=== PATIENT | female | born 1950 | race Caucasian/White ===

== ENCOUNTER → 2023-11-08 12:07 | Outpatient (REF) | payer OTHER, SELFPAY | LOC: RCS 12:07 | PROVIDERS: ATTENDING PHYSICIAN Internal Medicine Cardiovascular Disease; FAMILY PHYSICIAN Family Medicine | DX: I48.0 Paroxysmal atrial fibrillation (principal) | CPT/HCPCS: 93005 ==

== ENCOUNTER 2024-07-09 10:45 | Day surgery (SDC) | payer OTHER, SELFPAY | END 2024-07-09 11:58 | disposition home or self-care (01) | LOC: CATH 10:45 | PROVIDERS: ATTENDING PHYSICIAN Internal Medicine; FAMILY PHYSICIAN Family Medicine; REFERRING PHYSICIAN Internal Medicine Cardiovascular Disease | DX: I48.0 Paroxysmal atrial fibrillation (principal); I48.4 Atypical atrial flutter; E78.00 Pure hypercholesterolemia, unspecified; E03.9 Hypothyroidism, unspecified; E11.9 Type 2 diabetes mellitus without complications; Z79.01 Long term (current) use of anticoagulants; Z79.84 Long term (current) use of oral hypoglycemic drugs | CPT/HCPCS: 92960; 93005 ==

== ENCOUNTER → 2024-10-10 10:02 | Outpatient (REF) | payer OTHER, SELFPAY | LOC: WDC 10:02 | PROVIDERS: ATTENDING PHYSICIAN Family Medicine | DX: N63.20 Unspecified lump in the left breast, unspecified quadrant (principal); N63.23 Unspecified lump in the left breast, lower outer quadrant | CPT/HCPCS: 76642; 77062; 77066 ==

== ENCOUNTER → 2024-12-04 10:35 | Outpatient (REF) | payer OTHER, SELFPAY | LOC: RAD 10:35 | PROVIDERS: ATTENDING PHYSICIAN Family Medicine | DX: R63.4 Abnormal weight loss (principal) | CPT/HCPCS: 71046 ==

== ENCOUNTER 2024-12-15 23:27 | Observation (INO) | payer OTHER, SELFPAY ==
[2024-12-15 19:33] VITALS: BP 122/66; BMI 24.0
[2024-12-15 19:34] VITALS: BP 122/66
[2024-12-15 19:47] LABS: % Basophils 0.3 % (0-2); % Immature Granulocytes 0.4 % (0-0.5); % Lymphocytes 5.6 % (20.5-51.1); % Monocytes 5.2 % (1.7-9.3); % Neutrophils 88.5 % (42.2-75.2); Absolute Lymphocytes 0.6 10^3/uL (1.2-3.4); Absolute Monocytes 0.6 10^3/uL (0.1-0.6); Absolute Neutrophils 9.5 10^3/uL (1.4-6.5); Hematocrit 39.9 % (37.0-47.0); Hemoglobin 12.8 g/dL (12.0-16.0); Mean Corp Hgb Conc. 32.1 g/dL (33.0-37.0); Mean Corpuscular Hgb 28.6 pg (27.0-31.0); Mean Corpuscular Volume 89.1 fL (81.0-99.0); Mean Platelet Volume 11.4 fL (7.4-10.4); Nucleated Red Blood Cells % 0 %; Platelet Count 161 10^3/uL (130-400); Red Blood Cell Count 4.48 10^6/uL (4.20-5.40); Red Cell Dist. Width 13.9 % (11.5-14.5); White Blood Cell Count 10.7 10^3/uL (4.8-10.8)
[2024-12-15] MEDS: NSS 1000 IV (19:55)
[2024-12-15 20:00] VITALS: BP 135/80
[2024-12-15 20:10] LABS: ALT (SGPT) 21 U/L (0-35); AST (SGOT) 28 U/L (14-36); Albumin 4.1 g/dl (3.5-5.0); Alkaline Phosphatase 58 U/L (38-126); Blood Urea Nitrogen 13 mg/dl (7-17); Calcium 9.5 mg/dl (8.4-10.2); Carbon Dioxide 26 mmol/L (22-30); Chloride 97 mmol/L (98-107); Estimated Creatinine Clearance 64 ml/min; Glucose 232 mg/dl (70-99); Sodium 132 mmol/L (135-145); Total Bilirubin 1.1 mg/dl (0.2-1.3); Total Protein 6.5 g/dl (6.3-8.2); eGFR > 60.00
--- NOTE | 2024-12-15 20:35 | ED.GENMED ---
History of Present Illness
General
Chief Complaint: Weakness
Source: patient
Time Seen by Provider: 12/15/24 19:35
History of Present Illness
History of Present Illness:
This 74-year-old female with past medical history of atrial fibrillation, hyperlipidemia, ghv-snwgzvh-ydgxhetrf diabetes, anxiety presenting to the emergency department via EMS from home due to generalized weakness and inability to ambulate.
Patient tested positive for COVID on Monday, symptoms started Monday evening. Today patient was unable to get up out of bed, slid to the ground and family had to help her of the ground. Patient is on Pradaxa due to her history of A-fib, does not
currently have any headaches. Family did note over the last day and a half patient has been incontinent of urine but patient is denying any urinary frequency/urgency/dysuria or hematuria. Patient does admit to some nausea but no active vomitus.
Normally patient is able-bodied, ambulates without any assistive devices. She states that the generalized weakness is very atypical for her. She lives at home with her and multiple other family members.
Past History
Past History
ED Past Medical History: Arrthythmia (Atrial fibrillation), NIDDM and Hypothyroidism
ED Past Surgical History: Cholecystectomy, Gynecological and Orthopedic
Social History
Tobacco: Non-smoker
Alcohol: None
Drug: None
Personal:
Living: with family
Employment: Employed
Family History
Family History: Other (Noncontributory)
Review of Systems
Review of Systems
All Other Systems: ROS reviewed and negative except as documented in HPI and ROS
Phy Exam
Physical Exam
Physical Exam:
GENERAL: Alert , in no apparent distress
HEAD: NCAT
EYE: clear conjunctiva
NECK: Supple
ENT: o/p clr, mmm.
CARDIAC: Regular rate and rhythm .
LUNGS: Clear breath sounds bilaterally, no acute respiratory distress, no wheezes/rales/rhonchi
ABDOMEN: Soft, without focal tenderness, no r/g, no cvat
NEUROLOGICAL: Alert and oriented, REZA x 4
SKIN: Warm and dry, skin intact.
MUSCULOSKELETAL: No edema, well perfused.
PSYCH: Normal and appropriate interaction.
Scores
Heart Failure Risk
Heart Failure Risk Score: Not Applicable
Heart Score for Chest Pain Patients
STEMI patient?: Not applicable
Withdrawal Assessment of Alcohol
Withdrawal Assessment Completed?: Not applicable
Course
Orders/Labs/Results
Orders:
Orders
12/15/24 19:41
Complete Blood Count/With Diff Urgent
Comprehensive Metabolic Panel Urgent
12/15/24 19:44
CT Head W/o Iv Contrast Urgent
Comment:
Reason For Exam: covid, fall from bed, on pradaxa
0.9% Sodium Chloride 1000 ml [Nss] 1,000 ml IV BOLUS
CR Chest - 2 Views Urgent
Comment:
Reason For Exam: covid ,weakness
12/15/24 21:34
Urinalysis Reflex To Culture Urgent
Date Specimen was Collected: 12/15/24
Time Specimen was Collected: 20:57
Urine Microscopic Reflex Cult Urgent
Influenza A+B Rapid Molecular Urgent
LIBERTY Source: Nasal Swab
Specimen Description:
Urine Culture Urgent
LIBERTY Source: U
Specimen Description:
Date Specimen was Collected: 12/15/24
Time Specimen was Collected: 20:57
12/15/24 21:54
CefTRIAXone [Rocephin] 1,000 mg IV NOW STA
12/15/24 23:11
Admit/Transfer Patient As Directed
Co-Sign Provider:
Level of Care: Observation services
Assign to:: Medical/Surgical
Physician / Group: Manan
Diagnosis: COVID / UTI / Weakness
PRN Pain Medication Management As Directed
May give lesser potent ordered pain med per pt: Yes
preference::
Protocol:: Medication orders for pain may be administered in a
manner that supports deferring to patient preference
when the pt is:
- Requesting an ordered lesser potent pain medication.
Least to most potent pain medications are defined
as: acetaminophen < NSAID < tramadol < opioids
(morphine, oxycodone, hydromorphone).
- Requesting a lesser dose of the same medication IF
ORDERED.
- Requesting a less intrusive route of administration
if both routes are prescribed by the provider (PO <
IV).
12/15/24 23:12
Code Status As Directed
Resuscitation Status: Full Code
Abnormal Lab Results
12/15/24 12/15/24
19:41 21:34
MCHC 32.1 L g/dL
(33.0-37.0)
MPV 11.4 H fL
(7.4-10.4)
Absolute Neuts (auto) 9.5 H 10^3/uL
(1.4-6.5)
Absolute Lymphs (auto) 0.6 L 10^3/uL
(1.2-3.4)
Neutrophils % 88.5 H %
(42.2-75.2)
Lymphocytes % 5.6 L %
(20.5-51.1)
Sodium 132 L mmol/L
(135-145)
Chloride 97 L mmol/L
(98-107)
Glucose 232 H mg/dl
(70-99)
Urine Ketones 2+ A
(Negative)
Ur Occult Blood Reflex 1+ A
(Negative)
Leukocyte Esterase Rfl 3+ A
(Negative)
Urine WBC (Reflex) 16-20 A /HPF
(0-5)
Urine Bacteria (Reflex) Few A
(Negative)
Urine Glucose 2+ A
(Negative)
Urine Albumin (Reflex) 2+ A
(Neg - Trace)
12/15/24 19:41
12/15/24 19:41
Vital Signs
Initial and Last Documented VS:
Initial Vital Signs
Temp Pulse Resp BP Pulse Ox
98.6 F 98 24 122/66 98
12/15/24 19:33 12/15/24 19:33 12/15/24 19:33 12/15/24 19:33 12/15/24 19:33
Last Documented Vital Signs
Temp Pulse Resp BP Pulse Ox
98.6 F 86 17 126/52 96
12/15/24 19:33 12/15/24 23:00 12/15/24 23:00 12/15/24 23:00 12/15/24 23:00
MDM/Problems Addressed
Differential Diagnosis Includes:
COVID, electrolyte derangement, intracranial bleeding thought to be less likely given patient placed herself on the ground as opposed to fell, hydrocephalus given her generalized weakness and urinary incontinence
MDM/Problems Addressed:
74-year-old female presenting to the ER for further evaluation due to generalized weakness and inability to ambulate, tested positive for COVID on Monday, symptomatic over the last 2 days. Hemodynamically stable here, moves all extremities. Will
check labs, urine, chest x-ray, CT of the head ordered although my suspicion endocranial bleeding is low but given her reported urinary incontinence and weakness would also want to rule out hydrocephalus. Given patient normally does not have any
ambulatory complications and does not normally need any assistive devices and is anticoagulated, if she is unable to ambulate here will likely need admission for physical therapy and potential need for short-term rehab. Disposition pending.
Chronic conditions affecting care: DM and Arrhythmia
*Radiology
Radiology exam reviewed: preliminary read by ED provider (normal CXR) and radiology read reviewed
*Pulse Oximetry
Patient hypoxic: no
*[employer] Librarian Interpretation
Rate: normal
Rhythm: a-fib
*Critical Care Note
Total Time (30-74mins, 75-104mins- exclusive of procedures): Not Applicable
Patient Management
Discussion with other providers: Hospitalist
Escalation/DeEscalation of care consider admission/obs:
Patient CT of the head is unremarkable for any acute pathologies. Chest x-ray is within normal limits. Lab work does reveal mild hyperglycemia which is likely secondary to known COVID infection. Urinalysis shows 3+ leukocytes and 16-20 WBCs.
Given her reported urinary incontinence will treat as if patient is having a urinary tract infection which could also be contributing to her generalized weakness. 1 g of Rocephin ordered. Hospitalist team to admit.
ED Attending Note
-
Portions of this chart may have been created with voice recognition software.� Occasional wrong word or��sound alike� substitutions may have occurred due to the inherent limitations of voice recognition software.
Discharge Plan
Departure
Patient Disposition: Admit
Date of Disposition: 12/15/24
Time of Disposition: 21:47
Presentation/result/management discussed w/ accepting MD/DO: Hospitalist
Discharge Problem:
COVID-19, Generalized weakness
Prescriptions:
No Action
levothyroxine [Synthroid] 100 MCG tablet
100 mcg PO MOTUWETHFRSA
dabigatran etexilate [Pradaxa] 150 MG capsule
150 mg PO BID Qty: 0 0RF
cetirizine 10 MG tablet
10 mg PO DAILY
metoprolol succinate 50 MG tablet extended release 24 hr
50 mg PO BID
fluticasone propionate 1 SPRAY spray,suspension
2 spray intranasal DAILY PRN (Reason: nasal congestion)
rosuvastatin 5 MG tablet
5 mg PO QPM
vitamin X53-ocjlnbc B1
1 tab PO DAILY
sertraline 25 mg Tablet
25 mg PO DAILY
Saccharomyces boulardii [Probiotic (S.boulardii)] 250 mg Capsule
250 mg PO DAILY
magnesium 250 mg Tablet
250 mg PO DAILY
Referrals:
UNKNOWN - PT NOT,INTERVIEWE [Family Provider] -
Interventions
Interventions:
*Risk Screen - Suicide Last Done: 12/15/24 19:33
*General Assessment Last Done: 12/15/24 19:33
*Neglect/Abuse Screening Last Done: 12/15/24 19:33
*ED- Fall Risk Assessment Last Done: 12/15/24 19:33
*ED COVID-19 Vaccine History Last Done: 12/15/24 19:33
ED- Cardiac Assessment Last Done: 12/15/24 19:38
ED- Neurological Assessment Last Done: 12/15/24 19:38
ED- Pulmonary Assessment Last Done: 12/15/24 19:38
Discharge Date and Time
Print Language: ARGENTINE
[2024-12-15 21:00] VITALS: BP 149/69
[2024-12-15 21:43] LABS: Urine Albumin 2+ (Neg - Trace); Urine Bilirubin Negative (Negative); Urine Character Clear (Clear); Urine Color Yellow; Urine Glucose 2+ (Negative); Urine Ketone 2+ (Negative); Urine Leukocyte 3+ (Negative); Urine Nitrite Negative (Negative); Urine Occult Blood 1+ (Negative); Urine Urobilinogen Negative (Neg - 1+)
[2024-12-15 21:49] LABS: Urine Bacteria Few (Negative)
[2024-12-15 21:50] LABS: Urine Red Blood Cell 0-2 /HPF (0-2); Urine White Cell 16-20 /HPF (0-5)
[2024-12-15 22:00] VITALS: BP 125/59
[2024-12-15] MEDS: ROCEPHIN 1000 MG IV (22:15)
[2024-12-15 23:00] VITALS: BP 126/52
--- NOTE | 2024-12-15 23:14 | HPS.HSE ---
Family Physician
-
Family Physician: INTERVIEWE UNKNOWN - PT NOT
Chief Complaint
-
Weakness
History of Present Illness
Patient is a 74y F with PMH significant for A-Fib, DM-II and hypothyroidism who presents to ED complaining of generalized weakness. Patient states that she initially developed symptoms of cough, weakness, myalgias and fatigue on Monday. She
took a home COVID test on Monday which was positive. She has been resting at home and feels that many of her symptoms (cough, myalgias, etc) are improving. However, today she felt extremely weak and 'slid' to the floor. She denies any injury,
trauma, etc. No head injury. No LOC. She was unable to get back up unassisted and was brought to the ED for further evaluation.
Patient also complains of dark colored urine, frequency and mild dysuria for the past several days.
Patient has had several SARS-CoV-2 vaccinations. Most recently Fall 2023.
Medical History
Past Medical History
Past Medical History: Reports Other
Additional Past Medical History:
Paroxysmal A-Fib
DM-II
Hypothyroidism
Vitamin D Deficiency
Allergic Rhinitis
Vestibular Migraines
Past Surgical History: Reports Other
Additional Past Surgical History:
Tubal Ligation
ERCP
Breast Biopsy (benign)
Cholecystectomy
Right Oophorectomy
Breast Reduction
Right TKA
Left TKA
PVI Ablation
Social History
Tobacco: Non-smoker
Alcohol: None
Drug: None
Family History
Family History: Not pertinent
Allergies / Home Medications
Allergies reflects when Allergies were last updated in [facility].
Home Medications with original date entered in [facility]
Allergy/Medication List:
Allergies
Allergy/AdvReac Type Severity Reaction Status Date / Time
pollen extracts Allergy sneeze Verified 12/15/24 19:56
sulfamethoxazole Allergy Unknown Verified 12/15/24 19:56
[From Bactrim]
trimethoprim [From Bactrim] Allergy Unknown Verified 12/15/24 19:56
Home Medications
levothyroxine 100 mcg tablet (Synthroid) 100 mcg PO MOTUWETHFRSA 04/05/11
dabigatran etexilate 150 mg capsule (Pradaxa) 150 mg PO BID ##0 03/18/14
cetirizine 10 mg tablet 10 mg PO DAILY 04/07/22
fluticasone propionate 50 mcg/actuation nasal spray,suspension 2 spray intranasal DAILY PRN nasal congestion 04/07/22
metoprolol succinate 50 mg tablet,extended release 24 hr 50 mg PO BID 04/07/22
rosuvastatin 5 mg tablet 5 mg PO QPM 04/07/22
vitamin S34-vselead B1 1 tab PO DAILY 07/21/22
Saccharomyces boulardii 250 mg capsule (Probiotic (S.boulardii)) 250 mg PO DAILY 07/09/24
sertraline 25 mg tablet 25 mg PO DAILY 07/09/24
magnesium 250 mg tablet 250 mg PO DAILY 12/15/24
Review of Systems
-
History Source: Patient
A 12 point ROS was completed and negative except as noted: Yes
Constitutional: Reports Fever, Fatigue and Chills
EENT: Denies Sore Throat
Respiratory: Reports Cough and Trouble Breathing
Cardiac: Denies Chest Pain or Palpitations
Abdomen/GI: Denies Abdominal Pain, Nausea, Vomiting or Diarrhea
: Reports Dysuria, Frequency, Urgency and Dark Urine
Musculoskeletal: Reports Muscle Pain; Denies Joint Pain
Neurological: Reports Weakness; Denies Dizzy or Headache
Physical Exam
Vital Signs
Vital Signs
Temp Pulse Resp BP Pulse Ox
98.6 F 86 17 126/52 96
12/15/24 19:33 12/15/24 23:00 12/15/24 23:00 12/15/24 23:00 12/15/24 23:00
Physical Exam
General: Other (74y F in no acute distress.)
HEENT: Moist mucous membranes and PERRLA
Respiratory: Clear; No Wheezes, Rales or Rhonchi
Cardiac: S1/S2 and Irregular Rhythm; No Murmur
GI: Soft, Non Tender, Non Distended and Normal Bowel Sounds
Musculoskeletal: No Clubbing, No Cyanosis and No Edema
Neuro: AO x 3
Laboratory Results
-
12/15/24 19:41
12/15/24 19:41
Laboratory Results
Total Bilirubin 1.1 mg/dl (0.2-1.3) 12/15/24 19:41
AST 28 U/L (14-36) 12/15/24 19:41
ALT 21 U/L (0-35) 12/15/24 19:41
Alkaline Phosphatase 58 U/L (38-126) 12/15/24 19:41
Impression/Plan
-
A/P: Patient is a 74y F with PMH significant for A-Fib, DM-II and hypothyroidism who presents to ED complaining of generalized weakness and fatigue with recent COVID symptoms.
COVID-19 Infection
Generalized Weakness secondary to the above
- Observe overnight for further evaluation and treatment.
- Symptoms x 3 days in vaccinated host.
- Patient clinically improving in most regards and is not interested in Paxlovid, etc at present.
- Not currently hypoxemic, etc.
- Supportive care. PT / OT evals in AM.
- Follow for any new / worsening symptoms.
UTI
- Urinary symptoms and UA suggestive of infection.
- Continue ceftriaxone pending culture data.
Paroxysmal Atrial Fibrillation
- Stable. Continue metoprolol and Pradaxa.
DM-II
- Stable. No longer on PO medications.
- Follow glucose and cover with SSI as needed
- Update A1C.
Hypothyroidism
- Stable. Continue T4 replacement.
DVT Prophylaxis: On Pradaxa
Code Status: Full
[2024-12-16] VITALS (9 sets, daily range): BP systolic 100–138; BP diastolic 53–75; PULSE 79–95; O2SAT 96–97; BMI 23.5
[2024-12-16] MEDS: NSS 1000 IV ×2 (03:10→15:13)
--- NOTE | 2024-12-16 04:13 | PTCARENOTE ---
Rec'd pt. into room 433 from ED AAOx3; VSS. Pt. ambulatory with assist x 1, gait slightly unsteady, fall precautions initiated. Lungs clear, dry cough present, RA pulse ox 97%. Urinating without difficulty. Plan of care discussed with pt.;
understanding verbalized. Pt. resting quietly.
[2024-12-16] MEDS: TOPROL XL 50 MG PO ×2 (05:24→21:10)
[2024-12-16] MEDS: PRADAXA 150 MG PO ×2 (05:24→21:05)
[2024-12-16] MEDS: SYNTHROID 100 MCG PO (05:27)
[2024-12-16 07:54] LABS: Glucose - Point of Care 165 mg/dl (70-99)
[2024-12-16] MEDS: ZOLOFT 25 MG PO (08:43)
[2024-12-16] MEDS: FLORASTOR 250 MG PO (08:43)
[2024-12-16] MEDS: ZYRTEC 10 MG PO (08:43)
[2024-12-16 08:52] LABS: Hematocrit 34.3 % (37.0-47.0); Hemoglobin 11.2 g/dL (12.0-16.0); Mean Corp Hgb Conc. 32.7 g/dL (33.0-37.0); Mean Corpuscular Hgb 29.5 pg (27.0-31.0); Mean Corpuscular Volume 90.3 fL (81.0-99.0); Mean Platelet Volume 12.2 fL (7.4-10.4); Platelet Count 142 10^3/uL (130-400); White Blood Cell Count 9.8 10^3/uL (4.8-10.8)
[2024-12-16] MEDS: NOVOLOG FLEXPEN-LOW RESISTANCE SC (08:52)
[2024-12-16 09:12] LABS: Blood Urea Nitrogen 10 mg/dl (7-17); Calcium 9.4 mg/dl (8.4-10.2); Carbon Dioxide 27 mmol/L (22-30); Chloride 102 mmol/L (98-107); Estimated Creatinine Clearance 75 ml/min; Glucose 164 mg/dl (70-99); Potassium 4.2 mmol/L (3.5-5.1); Sodium 135 mmol/L (135-145); eGFR > 60.00
[2024-12-16 09:48] LABS: Glycohemoglobin (HgbA1c) 6.8 % (4.0-5.6)
[2024-12-16 11:34] LABS: Glucose - Point of Care 219 mg/dl (70-99)
[2024-12-16] MEDS: NOVOLOG FLEXPEN-LOW RESISTANCE 2 UNITS SC (11:46)
--- NOTE | 2024-12-16 13:48 | W.PN.HOSP.TC ---
Today's Communication/Plan
-
continue IV abx pending culture
home VN setup if patient interested
Assessment / Plan
Assessment / Plan
Assessment:
COVID-19 Infection
Generalized Weakness secondary to the above
- Symptoms x 3 days in vaccinated host.
- Patient clinically improving in most regards and is not interested in Paxlovid, etc at present.
- Not currently hypoxemic, etc.
- Supportive care. PT/OT evals (home VN)
- Follow for any new / worsening symptoms.
UTI
- Urinary symptoms and UA suggestive of infection.
- continue Rocephin, day 2 pending culture
Paroxysmal Atrial Fibrillation
- Stable. continue metoprolol and Pradaxa.
DM-II
- Stable. No longer on PO medications.
- Follow glucose and cover with SSI as needed
- A1C 6.8%
Hypothyroidism
- Stable. Continue T4 replacement.
DVT Prophylaxis: Pradaxa
Code Status: Full
Anticipated Discharge: Within 24 hours
Subjective/Interval History
-
Date of Service: December 16, 2024
denies any new complaints at present
breathing improved, no fever/chills
ambulated well
reports urinary frequency
Objective Data
-
Labs:
Laboratory Results
12/16/24
08:10
WBC 9.8
Hgb 11.2 L
Hct 34.3 L
Plt Count 142
Sodium 135
Potassium 4.2
Chloride 102
Carbon Dioxide 27
BUN 10
Creatinine 0.6
Glucose 164 H
Calcium 9.4
Vital Signs:
Vital Signs
Temp Pulse Resp BP Pulse Ox
100 F 82 20 103/62 97
12/16/24 07:00 12/16/24 07:00 12/16/24 07:00 12/16/24 07:00 12/16/24 07:00
I&O
12/15/24 12/16/24 12/17/24
06:59 06:59 06:59
Intake Total 480 / 480
Balance 480 / 480
Physical Exam
-
General: No Apparent Distress
HEENT: Normocephalic and Atraumatic
Respiratory: Negative Wheezes
Cardiac: Regular Rhythm and S1/S2
GI: Soft and Nontender
Musculoskeletal: No Edema
Neuro: AO x 3
Hematologic / Lymphatic: No Lymphadenopathy
Psych: Calm
Data Reviewed
-
Total Time Spent with Patient (in minutes): 41
Labs: Labs Reviewed by me
--- NOTE | 2024-12-16 14:07 | CM ---
Patient was admitted under OBS, OBS status discussed with patient, and TURNER letter provided, not signed. Patient is on isolation. Patient lives with spouse in a 2 story home, patient has 1st floor set up, patient was independent with adl's and
ambulation, no dme, patient drives, patient's physician ordered visiting nurses for patient as recommended by physical therapy, caser offered visiting nurses options to patient and patient declined visiting nurses.
Plan; Home with spouse when stable, no needs.
[2024-12-16] MEDS: ROCEPHIN 1000 MG IV (15:11)
[2024-12-16] MEDS: STERILE WATER FOR INJECTION 10 ML IV (15:11)
[2024-12-16 16:41] LABS: Glucose - Point of Care 162 mg/dl (70-99)
[2024-12-16] MEDS: NOVOLOG FLEXPEN-LOW RESISTANCE 1 UNITS SC (16:42)
[2024-12-16] MEDS: CRESTOR 5 MG PO (17:39)
[2024-12-16 21:45] LABS: Glucose - Point of Care 117 mg/dl (70-99)
[2024-12-17] MEDS: NSS 1000 IV (04:30)
[2024-12-17] MEDS: SYNTHROID 100 MCG PO (04:34)
[2024-12-17 05:13] VITALS: BMI 23.8
[2024-12-17 07:00] VITALS: BP 121/53
[2024-12-17 07:44] LABS: Hematocrit 32.7 % (37.0-47.0); Hemoglobin 10.3 g/dL (12.0-16.0); Mean Corp Hgb Conc. 31.5 g/dL (33.0-37.0); Mean Corpuscular Hgb 29.3 pg (27.0-31.0); Mean Corpuscular Volume 93.2 fL (81.0-99.0); Mean Platelet Volume 11.8 fL (7.4-10.4); Platelet Count 142 10^3/uL (130-400); Red Blood Cell Count 3.51 10^6/uL (4.20-5.40); Red Cell Dist. Width 14.1 % (11.5-14.5); White Blood Cell Count 5.1 10^3/uL (4.8-10.8)
[2024-12-17 08:16] LABS: Glucose - Point of Care 113 mg/dl (70-99)
[2024-12-17] MEDS: NOVOLOG FLEXPEN-LOW RESISTANCE SC ×2 (08:33→11:18)
[2024-12-17 08:36] LABS: Blood Urea Nitrogen 8 mg/dl (7-17); Calcium 9.4 mg/dl (8.4-10.2); Carbon Dioxide 25 mmol/L (22-30); Chloride 108 mmol/L (98-107); Estimated Creatinine Clearance 75 ml/min; Glucose 112 mg/dl (70-99); Potassium 4.5 mmol/L (3.5-5.1); Sodium 139 mmol/L (135-145); eGFR > 60.00
[2024-12-17] MEDS: PRADAXA 150 MG PO (08:52)
[2024-12-17] MEDS: FLORASTOR 250 MG PO (08:53)
[2024-12-17] MEDS: TOPROL XL 50 MG PO (08:53)
[2024-12-17] MEDS: B COMPLEX w/VITAMIN C 1 CAPLET PO (08:53)
[2024-12-17] MEDS: ZOLOFT 25 MG PO (08:53)
[2024-12-17] MEDS: ZYRTEC 10 MG PO (08:53)
--- NOTE | 2024-12-17 10:01 | W.PN.HOSP.TC ---
Today's Communication/Plan
-
dc to home
Assessment / Plan
Assessment / Plan
Assessment:
COVID-19 Infection
Generalized Weakness secondary to the above
- Symptoms x 3 days in vaccinated host.
- Patient clinically improving in most regards and is not interested in Paxlovid, etc at present.
- Not currently hypoxemic, etc.
- Supportive care. PT/OT evals (home VN)
- Follow for any new / worsening symptoms.
UTI
- Urinary symptoms and UA suggestive of infection. culture pending but improving on Rocephin (less frequency) therefore dc on Cefdinir x 5 days to complete 7 day course
Paroxysmal Atrial Fibrillation
- Stable. continue metoprolol and Pradaxa.
DM-II
- Stable. No longer on PO medications.
- Follow glucose and cover with SSI as needed
- A1C 6.8%
Hypothyroidism
- Stable. Continue T4 replacement.
DVT Prophylaxis: Pradaxa
Code Status: Full
More than 30 minutes spent in discharge including
Final examination of the patient
Summarizing hospital stay
Instructions for continuing care to all relevant caregivers
Preparation of discharge records, prescriptions, and referral forms
Total time spent (in minutes):41
Anticipated Discharge: Today
Subjective/Interval History
-
Date of Service: December 17, 2024
resting comfortably, no complaints
urinary frequency has improved
Objective Data
-
Labs:
Laboratory Results
12/17/24
07:06
WBC 5.1
Hgb 10.3 L
Hct 32.7 L
Plt Count 142
Sodium 139
Potassium 4.5
Chloride 108 H
Carbon Dioxide 25
BUN 8
Creatinine 0.6
Glucose 112 H
Calcium 9.4
Vital Signs:
Vital Signs
Temp Pulse Resp BP Pulse Ox
98.3 F 74 18 121/53 98
12/17/24 07:00 12/17/24 07:00 12/17/24 07:00 12/17/24 07:00 12/17/24 07:00
I&O
12/16/24 12/17/24 12/18/24
06:59 06:59 06:59
Intake Total 480 / 480 460 / 460
Balance 480 / 480 460 / 460
Physical Exam
-
General: No Apparent Distress
HEENT: Normocephalic and Atraumatic
Respiratory: Negative Wheezes
Cardiac: Regular Rhythm and S1/S2
GI: Soft and Nontender
Genito-urinary: No Costovertebral Tender
Neuro: AO x 3
Psych: Calm
Data Reviewed
-
Total Time Spent with Patient (in minutes): 41
Labs: Labs Reviewed by me
--- NOTE | 2024-12-17 10:06 | W.DS.TRANS ---
DC Summary - School Psychologist
-
Discharge Instructions:
Discharge Diagnosis/Procedures COVID-19 infection, UTI
Diet Regular
Activity As tolerated
Instructions:
Stand-Alone Forms:
Changes to Home Medications: No
Discharge Medications:
DC Medications w/original date entered in [facility]
levothyroxine 100 mcg tablet (Synthroid) 100 mcg PO MOTUWETHFRSA Thyroid 04/05/11
dabigatran etexilate 150 mg capsule (Pradaxa) 150 mg PO BID ##0 03/18/14
cetirizine 10 mg tablet 10 mg PO DAILY Allergies 04/07/22
fluticasone propionate 50 mcg/actuation nasal spray,suspension 2 spray intranasal DAILY PRN nasal congestion 04/07/22
metoprolol succinate 50 mg tablet,extended release 24 hr 50 mg PO BID Blood Pressure 04/07/22
rosuvastatin 5 mg tablet 5 mg PO QPM High Cholesterol 04/07/22
vitamin P06-dpslyev B1 1 tab PO DAILY Supplement 07/21/22
Saccharomyces boulardii 250 mg capsule (Probiotic (S.boulardii)) 250 mg PO DAILY Supplement 07/09/24
sertraline 25 mg tablet 25 mg PO DAILY Mental Health/Anxiety 07/09/24
magnesium 250 mg tablet 250 mg PO DAILY Supplement 12/15/24
cefdinir 300 mg capsule 300 mg PO BID #9 caps 12/17/24
Home Medication Changes
Pending Results: No
Total time spent discharging patient (in min): 41
[2024-12-17 11:00] VITALS: BP 122/71
--- NOTE | 2024-12-17 11:07 | CM ---
Chart reviewed and patient is for discharge to home today, no needs.
Plan; Home no needs.
[2024-12-17] MEDS: OMNICEF 300 MG PO (11:11)
== END 2024-12-17 12:28 | disposition home or self-care (01) ==
LOC: 4 WEST ACU 23:27
PROVIDERS: Physician Assistant Medical; ADMITTING PHYSICIAN Hospitalist; ATTENDING PHYSICIAN Internal Medicine; EMERGENCY PHYSICIAN Emergency Medicine
DX: U07.1 COVID-19 (principal); R53.1 Weakness; N39.0 Urinary tract infection, site not specified; R05.9 Cough, unspecified; M79.10 Myalgia, unspecified site; R53.83 Other fatigue; W06.XXXA Fall from bed, initial encounter; Y93.89 Activity, other specified; Y92.003 Bedroom of unspecified non-institutional (private) residence as the place of occurrence of the external cause; R32 Unspecified urinary incontinence; E78.5 Hyperlipidemia, unspecified; I48.0 Paroxysmal atrial fibrillation; E03.9 Hypothyroidism, unspecified; F41.9 Anxiety disorder, unspecified; I51.7 Cardiomegaly; Q25.46 Tortuous aortic arch; M19.012 Primary osteoarthritis, left shoulder; M19.011 Primary osteoarthritis, right shoulder; E11.9 Type 2 diabetes mellitus without complications; I67.81 Acute cerebrovascular insufficiency; Z79.890 Hormone replacement therapy; Z79.51 Long term (current) use of inhaled steroids; Z79.02 Long term (current) use of antithrombotics/antiplatelets; Z90.49 Acquired absence of other specified parts of digestive tract; E55.9 Vitamin D deficiency, unspecified; Z96.653 Presence of artificial knee joint, bilateral; Z88.2 Allergy status to sulfonamides; Z88.1 Allergy status to other antibiotic agents
CPT/HCPCS: 70450; 71046; 80048; 80053; 81003; 81015; 82962; 83036; 85025; 85027; 87077; 87086; 87502; 96361; 96374; 97162; 97166; 99285; G0378

== ENCOUNTER 2024-12-23 08:20 | Inpatient (IN) | payer OTHER, SELFPAY ==
[2024-12-21 20:44] VITALS: BP 130/79
[2024-12-21 21:17] LABS: % Basophils 0.3 % (0-2); % Eosinophils 1.1 % (0-6); % Immature Granulocytes 0.9 % (0-0.5); % Lymphocytes 2.6 % (20.5-51.1); % Monocytes 3.4 % (1.7-9.3); % Neutrophils 91.7 % (42.2-75.2); Absolute Eosinophils 0.1 10^3/uL (0-0.7); Absolute Immature Granulocytes 0.1 10^3/uL (0-0.05); Absolute Lymphocytes 0.2 10^3/uL (1.2-3.4); Absolute Monocytes 0.3 10^3/uL (0.1-0.6); Absolute Neutrophils 8.1 10^3/uL (1.4-6.5); Hematocrit 34.3 % (37.0-47.0); Hemoglobin 11.3 g/dL (12.0-16.0); Mean Corp Hgb Conc. 32.9 g/dL (33.0-37.0); Mean Corpuscular Hgb 28.8 pg (27.0-31.0); Mean Corpuscular Volume 87.5 fL (81.0-99.0); Nucleated Red Blood Cells % 0 %; Platelet Count 177 10^3/uL (130-400); Red Blood Cell Count 3.92 10^6/uL (4.20-5.40); Red Cell Dist. Width 13.7 % (11.5-14.5); White Blood Cell Count 8.9 10^3/uL (4.8-10.8)
[2024-12-21 21:36] LABS: ALT (SGPT) 28 U/L (0-35); AST (SGOT) 36 U/L (14-36); Albumin 3.7 g/dl (3.5-5.0); Alkaline Phosphatase 70 U/L (38-126); Blood Urea Nitrogen 8 mg/dl (7-17); Calcium 9.7 mg/dl (8.4-10.2); Carbon Dioxide 25 mmol/L (22-30); Chloride 99 mmol/L (98-107); Glucose 149 mg/dl (70-99); Potassium 3.9 mmol/L (3.5-5.1); Sodium 134 mmol/L (135-145); Total Bilirubin 0.8 mg/dl (0.2-1.3); Total Protein 6.3 g/dl (6.3-8.2); eGFR > 60.00
[2024-12-21 22:17] VITALS: BMI 23.8
[2024-12-21 22:25] VITALS: BP 97/65
[2024-12-21] MEDS: NSS 1000 IV (22:26)
--- NOTE | 2024-12-21 23:26 | ED.GENMED ---
History of Present Illness
General
Chief Complaint: Weakness
Source: patient
Exam Limitations: none
Time Seen by Provider: 12/21/24 22:20
History of Present Illness
History of Present Illness:
74-year-old female presents for reevaluation. She was discharged from here 4 days ago. She had COVID infection as well as urinary tract infection. She was discharged home on Omnicef however urine culture came back a multidrug-resistant
Klebsiella. She was placed on Macrobid. Since starting the Macrobid she has had innumerable episodes of diarrhea. She now notes generalized weakness sensation of dehydration. Accompanied by her daughter. Her daughter states that she collapsed
in the bathroom today but did not sustain any injuries. Patient has no headache chest pain or shortness of breath. She actually fell yesterday and was taken to a different hospital and had a CT of her head which was negative.
Past History
Past History
ED Past Medical History: Arrthythmia (Atrial fibrillation), NIDDM and Hypothyroidism
ED Past Surgical History: Cholecystectomy, Gynecological and Orthopedic
Social History
Tobacco: Non-smoker
Alcohol: None
Drug: None
Personal:
Living: with family
Employment: Employed
Family History
Family History: Other (Noncontributory)
Phy Exam
Physical Exam
Physical Exam:
General: Well developed female no acute respiratory distress
HEENT: Normocephalic mucosa dry
Heart: Regular rate and rhythm
Lungs: Clear no wheeze
Abdomen is soft nontender
Extremities: No cyanosis
Course
Orders/Labs/Results
Orders:
Orders
12/21/24 21:05
CMP [Comprehensive Metabolic Panel] Urgent
Complete Blood Count/With Diff Urgent
12/21/24 22:25
0.9% Sodium Chloride 1000 ml [Nss] 1,000 ml IV BOLUS
12/21/24 23:02
Urinalysis Reflex To Culture Urgent
12/21/24 23:23
Piperacillin/Tazo 3.375 Gram [Zosyn] 3.375 gram in 50 ml IV NOW
Abnormal Lab Results
12/21/24
21:05
RBC 3.92 L 10^6/uL
(4.20-5.40)
Hgb 11.3 L g/dL
(12.0-16.0)
Hct 34.3 L %
(37.0-47.0)
MCHC 32.9 L g/dL
(33.0-37.0)
MPV 11.0 H fL
(7.4-10.4)
Abs Immat Gran (auto) 0.1 H 10^3/uL
(0-0.05)
Absolute Neuts (auto) 8.1 H 10^3/uL
(1.4-6.5)
Absolute Lymphs (auto) 0.2 L 10^3/uL
(1.2-3.4)
Immature Gran % 0.9 H %
(0-0.5)
Neutrophils % 91.7 H %
(42.2-75.2)
Lymphocytes % 2.6 L %
(20.5-51.1)
Sodium 134 L mmol/L
(135-145)
Glucose 149 H mg/dl
(70-99)
12/21/24 21:05
12/21/24 21:05
Vital Signs
Initial and Last Documented VS:
Initial Vital Signs
Temp Pulse Resp BP Pulse Ox
98.2 F 107 20 130/79 98
12/21/24 20:44 12/21/24 20:44 12/21/24 20:44 12/21/24 20:44 12/21/24 20:44
Last Documented Vital Signs
Temp Pulse Resp BP Pulse Ox
98.2 F 96 24 97/65 97
12/21/24 20:44 12/21/24 22:45 12/21/24 22:45 12/21/24 22:25 12/21/24 22:30
MDM/Problems Addressed
Differential Diagnosis Includes:
Patient with profound weakness and multiple episodes of diarrhea over the past 2 days. Recent hospital course mentioned above. Systolic blood pressure in the 90s. Looks dry. Check labs. Fluids ordered.
Reviewed urine culture from hospital stay only oral agent effective against the Klebsiella is Macrobid however patient does not seem to be tolerating it. Zosyn ordered. Will admit to hospital
*Critical Care Note
Total Time (30-74mins, 75-104mins- exclusive of procedures): Not Applicable
ED Attending Note
-
Portions of this chart may have been created with voice recognition software.� Occasional wrong word or��sound alike� substitutions may have occurred due to the inherent limitations of voice recognition software.
Discharge Plan
Departure
Patient Disposition: Admit
Date of Disposition: 12/21/24
Time of Disposition: 23:30
Presentation/result/management discussed w/ accepting MD/DO: Hospitalist
Discharge Problem:
Generalized weakness, Acute dehydration
Prescriptions:
No Action
levothyroxine [Synthroid] 100 MCG tablet
100 mcg PO MOTUWETHFRSA
dabigatran etexilate [Pradaxa] 150 MG capsule
150 mg PO BID Qty: 0 0RF
cetirizine 10 MG tablet
10 mg PO DAILY
metoprolol succinate 50 MG tablet extended release 24 hr
50 mg PO BID
fluticasone propionate 1 SPRAY spray,suspension
2 spray intranasal DAILY PRN (Reason: nasal congestion)
rosuvastatin 5 MG tablet
5 mg PO QPM
vitamin [id number] B1
1 tab PO DAILY
sertraline 25 mg Tablet
25 mg PO DAILY
Saccharomyces boulardii [Probiotic (S.boulardii)] 250 mg Capsule
250 mg PO DAILY
magnesium 250 mg Tablet
250 mg PO DAILY
cefdinir 300 mg capsule
300 mg PO BID Qty: 9 0RF
Rx Instructions:
next dose 12/17 PM
Referrals:
Domenica Fang MD [Family Provider] -
Interventions
Interventions:
*Risk Screen - Suicide Last Done: 12/21/24 22:17
*General Assessment Last Done: 12/21/24 20:44
*Neglect/Abuse Screening Last Done: 12/21/24 22:17
*ED- Fall Risk Assessment Last Done: 12/21/24 22:17
*ED COVID-19 Vaccine History Last Done: 12/21/24 22:17
ED- Cardiac Assessment Last Done: 12/21/24 22:17
ED-EENT Assessment Last Done: 12/21/24 22:22
ED-Musculoskeletal Assessment Last Done: 12/21/24 22:22
ED- Neurological Assessment Last Done: 12/21/24 22:17
ED- Pulmonary Assessment Last Done: 12/21/24 22:17
ED-Skin Assessment Last Done: 12/21/24 22:17
Discharge Date and Time
Print Language: MOZAMBICAN
--- NOTE | 2024-12-21 23:36 | HPS.HSE ---
Family Physician
-
Family Physician: Domenica Fang MD
Chief Complaint
-
Weakness
History of Present Illness
Patient is a 74 y/o female past medical history of atrial fibrillation, diabetes mellitus, hypothyroidism and recent hospitalization for COVID infection and UTI who presents with weakness. Patient was admitted from December 15 to . During that
hospitalization she experienced COVID related weakness for which she was evaluated by physical therapy. She received ceftriaxone for a urinary tract infection with improvement in her symptoms and was transitioned Ceftin to complete a 7 day coarse.
After discharge her urine culture revealed an ESBL Klebsiella so she was transitioned to nitrofurantoin. Since changing antibiotics she reports innumerable episodes of diarrhea yesterday, but notes diarrhea seem improved today. She reports several
falls over the past couple of days due to generalized weakness. She denies fevers, sweats or chills. She denies dysuria.
Medical History
Past Medical History
Past Medical History: Reports Other
Additional Past Medical History:
Paroxysmal A-Fib
DM-II
Hypothyroidism
Vitamin D Deficiency
Allergic Rhinitis
Vestibular Migraines
Past Surgical History: Reports Other
Additional Past Surgical History:
Tubal Ligation
ERCP
Breast Biopsy (benign)
Cholecystectomy
Right Oophorectomy
Breast Reduction
Right TKA
Left TKA
PVI Ablation
Social History
Tobacco: Non-smoker
Alcohol: None
Drug: None
Family History
Family History: Not pertinent
Allergies / Home Medications
Allergies reflects when Allergies were last updated in [employer].
Home Medications with original date entered in [employer]
Allergy/Medication List:
Allergies
Allergy/AdvReac Type Severity Reaction Status Date / Time
pollen extracts Allergy sneeze Verified 12/21/24 20:44
sulfamethoxazole Allergy Unknown Verified 12/21/24 20:44
[From Bactrim]
trimethoprim [From Bactrim] Allergy Unknown Verified 12/21/24 20:44
Home Medications
levothyroxine 100 mcg tablet (Synthroid) 100 mcg PO MOTUWETHFRSA Thyroid 04/05/11
dabigatran etexilate 150 mg capsule (Pradaxa) 150 mg PO BID ##0 03/18/14
cetirizine 10 mg tablet 10 mg PO DAILY Allergies 04/07/22
fluticasone propionate 50 mcg/actuation nasal spray,suspension 2 spray intranasal DAILY PRN nasal congestion 04/07/22
metoprolol succinate 50 mg tablet,extended release 24 hr 50 mg PO BID Blood Pressure 04/07/22
rosuvastatin 5 mg tablet 5 mg PO QPM High Cholesterol 04/07/22
vitamin [id number] B1 1 tab PO DAILY Supplement 07/21/22
Saccharomyces boulardii 250 mg capsule (Probiotic (S.boulardii)) 250 mg PO DAILY Supplement 07/09/24
sertraline 25 mg tablet 25 mg PO DAILY Mental Health/Anxiety 07/09/24
magnesium 250 mg tablet 250 mg PO DAILY Supplement 12/15/24
nitrofurantoin monohydrate/macrocrystals 100 mg capsule 100 mg PO BID 12/21/24
Review of Systems
-
A 12 point ROS was completed and negative except as noted: Yes
Constitutional: Denies Fever or Chills
Respiratory: Denies Cough or Trouble Breathing
Cardiac: Denies Chest Pain or Palpitations
Abdomen/GI: Reports Nausea and Diarrhea; Denies Abdominal Pain
Physical Exam
Vital Signs
Vital Signs
Temp Pulse Resp BP Pulse Ox
98.2 F 96 24 97/65 97
12/21/24 20:44 12/21/24 22:45 12/21/24 22:45 12/21/24 22:25 12/21/24 22:30
Physical Exam
General: Comfortable and Conversant
HEENT: Anicteric and Moist mucous membranes
Respiratory: Clear and Non Labored Respirations
Cardiac: S1/S2 and Regular Rhythm
GI: Soft and Non Tender
Rectal: Deferred by Provider
Musculoskeletal: No Clubbing, No Cyanosis and No Edema
Skin: Warm and Dry
Neuro: Awake, Alert, Oriented and Nonfocal/grossly intact
Psych: Calm
Laboratory Results
-
12/21/24 21:05
12/21/24:
Laboratory Results
Total Bilirubin 0.8 mg/dl (0.2-1.3) 12/21/24:
AST 36 U/L (14-36) 12/21/24:
ALT 28 U/L (0-35) 12/21/24:
Alkaline Phosphatase 70 U/L (38-126) 12/21/24:
Data Reviewed
-
Lab Data: Labs Reviewed by me
Impression/Plan
-
Diarrhea, possibly related to nitrofurantoin
-Check stool for C diff following recent IV abx
-Allow low residue diet
-Continue probiotics
ESBL Klebsiella Positive Urine Culture
-During prior admission patient received ceftriaxone with improvement in dysuria
-Patient denies dysuria at present time. She continues to be afebrile with normal WBC Count
-Await repeat urinalysis
-Hold on antibiotics pending urinalysis result
-Encourage patient to follow-up with Urology as outpatient due to reports of frequent UTIs
Generalized Weakness
-Consult PT/OT
Paroxysmal A-Fib
-Continue Pradaxa for anticoagulation
-Continue Metoprolol for rate control with hold parameters
DM-II
-HgbA1c 6.8 in December 2024
-Monitor sugars and continue coverage insulin
Hypothyroidism
-Continue levothyroxine
DVT proph: Pradaxa
Code Status: Full Code
[2024-12-22] VITALS (7 sets, daily range): BP systolic 105–131; BP diastolic 54–73; PULSE 90; O2SAT 96; BMI 23.8; BMI 24.6
--- NOTE | 2024-12-22 00:30 | W.PN.UPDATE ---
Update Note
Progress Note Update
Patient seen in conjunction with LINE SERVICE TECHNICIAN. I agree with the findings on exam physical. I concur with the assessment and plan.
Briefly, this is a 74-year-old with past medical history significant for proximal atrial fibrillation on anticoagulation with dabigatran, hypothyroid, recent recurrent UTIs, recent admission for COVID-19 infection complicated by urinary tract
infection status post antibiotics will presents to the emergency department with weakness and diarrhea.
After discharge patient was continued on Ceftin for a urinary tract infection. However PMD noted that the cultures grew ESBL Klebsiella. She called in Macrobid which patient started taking. Some of the patients that taking the Macrobid she began
to have significant diarrhea. She was so weak that she had a fall yesterday and was seen at an outside hospital and discharged. Today she continued to remain weak and could not get up to walk. She continued to have diarrhea today but not in the
ED so far.
She denies any nausea or vomiting. She denies abdominal pain. She currently denies any dysuria. She denies frequency or urgency.
In the emergency department she had slightly low BPs in the 90s systolic, he was not tachycardic with a pulse of 89 and oxygen saturation of 97% she was afebrile with a temp of 98.3. CBC was unremarkable. Electrolytes BUN/creatinine were all
stable.
Assessment and plan
Well appearing 74 y.o with diarrhea and weakness after starting macrobid. She has finished course of Ceftriaxone-ceftin for UTI when she was told she had resistant Klebsiella. She had been asymptomatic but started macrobid with ensuing diarrhea.
Here she is non-toxic with normal labs and now new urinary symptoms.
- admit to med/surg
- repeat u/a and urine culture
- hold macrobid
- if positive will continue zosyn and consult ID
Diarrhea
- CDiff pending
- IV fluids for now
AFIB
- continue pradaxa and metoprolol (with hold parameters)
- PT evaluation
DVT PPX - on pradaxa
Code status - Full Code
[2024-12-22] MEDS: NSS 1000 IV (02:04)
--- NOTE | 2024-12-22 02:20 | PTCARENOTE ---
patient arrived from ED. AAO x 4. VSS. No telemetry ordered. IV fluids initiated at 80 ml/hr. Partial assist OOB--patient independent at baseline. Patient with belongings at bedside--does not want to send any belongings to security. Dual skin check
completed. Urine and stool sample due to be collected--hat is in toilet, for collection. Patient oriented to room. Bed in lowest position. Bed alarm on. Call morgan and personal belongings within reach.
[2024-12-22] MEDS: SYNTHROID PO (04:16)
[2024-12-22 04:27] LABS: Urine Albumin Negative (Neg - Trace); Urine Bilirubin Negative (Negative); Urine Character Slightly Cloudy (Clear); Urine Color Yellow; Urine Glucose Negative (Negative); Urine Ketone 2+ (Negative); Urine Leukocyte 2+ (Negative); Urine Nitrite Negative (Negative); Urine Occult Blood Negative (Negative); Urine Specific Gravity 1.025 (<1.030); Urine Urobilinogen Negative (Neg - 1+)
[2024-12-22 04:36] LABS: Urine Squamous Cell >30 /LPF (Few)
[2024-12-22 04:37] LABS: Urine Red Blood Cell 0-2 /HPF (0-2)
[2024-12-22 04:38] LABS: Urine Bacteria Few (Negative); Urine Yeast Few (Negative)
[2024-12-22 07:13] LABS: Hematocrit 28.7 % (37.0-47.0); Hemoglobin 9.5 g/dL (12.0-16.0); Mean Corp Hgb Conc. 33.1 g/dL (33.0-37.0); Mean Corpuscular Hgb 29.1 pg (27.0-31.0); Mean Platelet Volume 11.3 fL (7.4-10.4); Platelet Count 156 10^3/uL (130-400); Red Blood Cell Count 3.26 10^6/uL (4.20-5.40); Red Cell Dist. Width 13.9 % (11.5-14.5); White Blood Cell Count 5.5 10^3/uL (4.8-10.8)
[2024-12-22 07:41] LABS: Glucose - Point of Care 129 mg/dl (70-99)
[2024-12-22 07:42] LABS: Blood Urea Nitrogen 8 mg/dl (7-17); Calcium 8.7 mg/dl (8.4-10.2); Carbon Dioxide 25 mmol/L (22-30); Chloride 100 mmol/L (98-107); Estimated Creatinine Clearance 64 ml/min; Glucose 126 mg/dl (70-99); Potassium 3.7 mmol/L (3.5-5.1); Sodium 133 mmol/L (135-145); eGFR > 60.00
[2024-12-22] MEDS: NOVOLOG FLEXPEN-LOW RESISTANCE SC ×2 (08:13→17:04)
[2024-12-22] MEDS: PRADAXA 150 MG PO ×2 (09:42→20:38)
[2024-12-22] MEDS: FLORASTOR 250 MG PO (09:42)
[2024-12-22] MEDS: INVANZ 60 MG IV (09:43)
[2024-12-22] MEDS: ZOLOFT 25 MG PO (09:43)
[2024-12-22] MEDS: TOPROL XL PO (09:43)
--- NOTE | 2024-12-22 11:37 | W.PN.HOSP.TC ---
Today's Communication/Plan
-
continue Invanz pending repeat culture
regular diet
Assessment / Plan
Assessment / Plan
Assessment:
Klebsiella Oxytoca ESBL UTI
- discharged last admission on Cefdinir prior to culture data availabilty after discussion with patient, no prior MDRO and UTI symptoms were improving
- PCP notified patient that ESBL growth - switched to Macrobid
- patient unable to tolerate Macrobid, severe diarrhea and abd discomfort
- presents back for weakness
- for now, continue Ertapanem pending repeat UA/Cx
- consider ID consult Monday for likely home IV abx
antibiotic associated diarrhea from Macrobid
- C. Diff and noro negative
Recent COVID-19 infection
- improved
- no indication for ongoing isolation
Paroxysmal Atrial Fibrillation
- Stable. continue metoprolol and Pradaxa.
DM-II
- Stable. No longer on PO medications.
- Follow glucose and cover with SSI as needed
- A1C 6.8%
Hypothyroidism
- Stable. Continue T4 replacement.
DVT Prophylaxis: Pradaxa
Code Status: Full
Anticipated Discharge: 24 - 48 hours
Subjective/Interval History
-
Date of Service: December 22, 2024
denies any new complaints
Objective Data
-
Labs:
Laboratory Results
12/22/24
06:05
WBC 5.5
Hgb 9.5 L
Hct 28.7 L
Plt Count 156
Sodium 133 L
Potassium 3.7
Chloride 100
Carbon Dioxide 25
BUN 8
Creatinine 0.7
Glucose 126 H
Calcium 8.7
Vital Signs:
Vital Signs
Temp Pulse Resp BP Pulse Ox
98.5 F 81 20 113/57 97
12/22/24 07:31 12/22/24 09:43 12/22/24 07:31 12/22/24 09:43 12/22/24 07:31
I&O
12/21/24 12/22/24 12/23/24
06:59 06:59 06:59
Intake Total 120 / 120
Balance 120 / 120
Physical Exam
-
General: No Apparent Distress
HEENT: Normocephalic and Atraumatic
Respiratory: Negative Wheezes
Cardiac: Regular Rhythm and S1/S2
GI: Soft and Nontender
Musculoskeletal: No Edema
Neuro: AO x 3
Hematologic / Lymphatic: No Lymphadenopathy
Psych: Calm
Data Reviewed
-
Total Time Spent with Patient (in minutes): 41
Labs: Labs Reviewed by me
[2024-12-22 11:52] LABS: Glucose - Point of Care 219 mg/dl (70-99)
[2024-12-22] MEDS: NOVOLOG FLEXPEN-LOW RESISTANCE 2 UNITS SC (13:26)
[2024-12-22 15:54] LABS: Glucose - Point of Care 118 mg/dl (70-99)
[2024-12-22] MEDS: CRESTOR 5 MG PO (17:08)
[2024-12-22] MEDS: TOPROL XL 50 MG PO (20:39)
[2024-12-22 20:49] LABS: Glucose - Point of Care 143 mg/dl (70-99)
[2024-12-23] MEDS: SYNTHROID 100 MCG PO (05:40)
[2024-12-23 05:46] VITALS: BMI 24.5
[2024-12-23 07:38] VITALS: BP 124/65
[2024-12-23] MEDS: NOVOLOG FLEXPEN-LOW RESISTANCE SC ×3 (07:41→16:43)
[2024-12-23] MEDS: PRADAXA 150 MG PO ×2 (07:42→20:35)
[2024-12-23] MEDS: ZOLOFT 25 MG PO (07:42)
[2024-12-23] MEDS: TOPROL XL 50 MG PO ×2 (07:42→20:35)
[2024-12-23] MEDS: FLORASTOR 250 MG PO (07:47)
[2024-12-23 07:50] LABS: Glucose - Point of Care 122 mg/dl (70-99)
--- NOTE | 2024-12-23 09:54 | W.PN.HOSP.TC ---
Today's Communication/Plan
-
ID consult
Check orthostatics
Assessment / Plan
Assessment / Plan
Gen-AAOx3, NAD
HEENT-NC, anicteric, clear oral mm, right sided periorbital bruising
Neck-supple
CV-reg, no M, +S1/S2
Lungs-clear B/L
Abd-soft, NT, ND
Ext-no edema
Musculoskeletal-no cyanosis, clubbing
Skin-warm and dry
Neuro-grossly non-focal
Psych-calm, cooperative
Klebsiella Oxytoca ESBL UTI
- discharged last admission on Cefdinir prior to culture data availabilty after discussion with patient, no prior MDRO and UTI symptoms were improving
- PCP notified patient that ESBL growth - switched to Macrobid
- patient unable to tolerate Macrobid, severe diarrhea and abd discomfort
- presents back for weakness, likely due to volume depletion
- for now, continue Ertapanem. ID consulted. Repeat culture negative due to recent antibiotic exposure.
Antibiotic associated diarrhea from Macrobid
- C. Diff and noro negative
Recent COVID-19 infection
- improved
- no indication for ongoing isolation
Paroxysmal Atrial Fibrillation
- Stable. continue metoprolol and Pradaxa.
DM2 without hyperglycemia
- Stable. No longer on PO medications.
- Follow glucose and cover with SSI as needed
- A1C 6.8%
Hypothyroidism
- Stable. Continue T4 replacement.
Hyperlipidemia -rosuvastatin.
DVT Prophylaxis: Pradaxa
Full code
Dispo -patient asking about timing of discharge, eager to go home. Await ID input.
Anticipated Discharge: Within 24 hours
Subjective/Interval History
-
Date of Service: December 23, 2024
Patient seen and examined. Feels much better. No complaints.
Objective Data
-
Labs:
Laboratory Results
12/23/24
08:59
WBC Pending
Hgb Pending
Hct Pending
Plt Count Pending
Sodium Pending
Potassium Pending
Chloride Pending
Carbon Dioxide Pending
BUN Pending
Creatinine Pending
Glucose Pending
Calcium Pending
Vital Signs:
Vital Signs
Temp Pulse Resp BP Pulse Ox
97.7 F 72 18 124/65 96
12/23/24 07:38 12/23/24 07:42 12/23/24 07:38 12/23/24 07:42 12/23/24 07:38
I&O
12/22/24 12/23/24 12/24/24
06:59 06:59 06:59
Intake Total 120 / 120 1320 / 1320
Balance 120 / 120 1320 / 1320
Review of Systems
-
History Source: Patient
All other systems: Reviewed and negative
[2024-12-23 10:12] VITALS: BP 112/74; BP 114/79; BP 115/70; PULSE 74; PULSE 77; PULSE 83
[2024-12-23 10:47] LABS: Blood Urea Nitrogen 7 mg/dl (7-17); Calcium 9.5 mg/dl (8.4-10.2); Carbon Dioxide 27 mmol/L (22-30); Chloride 102 mmol/L (98-107); Estimated Creatinine Clearance 75 ml/min; Glucose 129 mg/dl (70-99); Potassium 3.9 mmol/L (3.5-5.1); Sodium 137 mmol/L (135-145); eGFR > 60.00
[2024-12-23 10:49] LABS: Hematocrit 33.2 % (37.0-47.0); Hemoglobin 10.7 g/dL (12.0-16.0); Mean Corp Hgb Conc. 32.2 g/dL (33.0-37.0); Mean Corpuscular Hgb 28.7 pg (27.0-31.0); Mean Platelet Volume 10.9 fL (7.4-10.4); Platelet Count 192 10^3/uL (130-400); Red Blood Cell Count 3.73 10^6/uL (4.20-5.40); Red Cell Dist. Width 13.8 % (11.5-14.5); White Blood Cell Count 3.9 10^3/uL (4.8-10.8)
[2024-12-23] MEDS: INVANZ 60 MG IV (11:19)
[2024-12-23 11:21] LABS: Glucose - Point of Care 149 mg/dl (70-99)
--- NOTE | 2024-12-23 14:17 | CON.ID ---
Consultation
-
Date/Time Consultation Requested: 12/22/24 22:17
Date/Time Consultation Performed: 12/23/24 14:18
Requesting Provider: Dr Leyva
Performing Provider: Dr Townsend
Reason for Consultation: ESBL UTI
Chief Complaint / Past History
Chief Complaint
weakness
History of Present Illness
Ms Nguyen is a 74 year old female with history of Dm2, recent covid infection, recent ESBL E coli UTI - prior to sensitivities resulting she was on ceftriaxone and later ceftin. Symptoms of UTI included dysuria, frequency and dark urine for
several days. When sensitivities resulted she was transitioned to nitrofurantoin on 12/19 by her PCP however then developed intractable diarrhea, weakness and falls. No fevers, sweats or chills. Reports she is on clobetasol for vaginitis. She
was referred back here by her PCP.
has ESRD on HD.
Since arrival here she has been afebrile, bp stable, wbc initially 8.9 now 3.9, hgb 10.7, plt 192, cr 0.6, a1c last visit 6.8, repeat UA on 12/22 with >30 squamous cells, 6-10 wbc/hpf few bacteria, few yeast, this is an improvement from 12/15 when she
had 16-20 wbc/hpf, 12/15 urine culture with 100K Esbl K oxytocca, c difficile ag/toxin are both negative, repeat urine culture 12/22 negative, she has additionally had 2 days of ertapenem here, ID is consulted for assistance with management.
Past History
Additional Past Medical History:
Paroxysmal A-Fib
DM-II
Hypothyroidism
Vitamin D Deficiency
Allergic Rhinitis
Vestibular Migraines
Additional Past Surgical History:
Tubal Ligation
ERCP
Breast Biopsy (benign)
Cholecystectomy
Right Oophorectomy
Breast Reduction
Right TKA
Left TKA
PVI Ablation
Allergy History:
pollen extracts Allergy (Verified 12/21/24 20:44)
sneeze
sulfamethoxazole [From Bactrim] Allergy (Verified 12/21/24 20:44)
Unknown
trimethoprim [From Bactrim] Allergy (Verified 12/21/24 20:44)
Unknown
Medications Reviewed: Yes
Social History
Tobacco: Non-Smoker
Alcohol: None
Drug: None
Family History
Family History: Not Pertinent
Review of Systems
Review of Systems
General: Negative Fever or Chills
All systems: All other systems were reviewed and were negative
Vital Signs
Temp Pulse Resp BP Pulse Ox
97.7 F 72 18 124/65 96
12/23/24 07:38 12/23/24 07:42 12/23/24 07:38 12/23/24 07:42 12/23/24 07:38
Physical Exam
Physical Exam
Constitutional: No Acute Distress
Cardiovascular: Regular Rate and S1/S2; Negative Murmur or Rub
Pulmonary: Clear and Symmetric; Negative Wheezes, Rales or Rhonchi
Gastrointestinal: Soft, Non Tender, Non Distended and Normal Bowel Sounds
Genito-Urinary: Negative Suprapubic Tenderness
Skin: Warm and Dry; Negative Rash or Jaundice
Lab / Diagnostic Study Results
12/23/24 08:59
12/23/24 08:59
Abs Immat Gran (auto) 0.1 10^3/uL (0-0.05) H 12/21/24 21:05
Absolute Neuts (auto) 8.1 10^3/uL (1.4-6.5) H 12/21/24 21:05
Absolute Lymphs (auto) 0.2 10^3/uL (1.2-3.4) L 12/21/24 21:05
Absolute Monos (auto) 0.3 10^3/uL (0.1-0.6) 12/21/24 21:05
Absolute Basos (auto) 0.0 10^3/uL (0-0.2) 12/21/24 21:05
Immature Gran % 0.9 % (0-0.5) H 12/21/24 21:05
Neutrophils % 91.7 % (42.2-75.2) H 12/21/24 21:05
Lymphocytes % 2.6 % (20.5-51.1) L 12/21/24 21:05
Monocytes % 3.4 % (1.7-9.3) 12/21/24 21:05
Eosinophils % 1.1 % (0-6) 12/21/24 21:05
Basophils % 0.3 % (0-2) 12/21/24 21:05
Ur Squamous Epith Cells >30 /LPF (Few) 12/22/24 04:15
Microbiology Results
Micro:
12/22/24 04:15 Urine Culture - Final
Urine No Significant Growth
12/22/24 05:49 C. difficile GDH Antigen & Toxins - Final
Feces/Stool Negative for toxigenic C.difficile
- Final
Negative for Norovirus GI and GII.
Assessment / Plan
UTI due to ESBL K oxytoca
Recurrent UTIs
- has already had ~5 days of effective antibiotics (3 of nitrofurantoin and 2 of ertapenem)
- will give a dose of fosfomycin today - observe overnight for response, this will complete a 7 day course
- can trial hiprex after completion of antibiotics for secondary prevention
- clobetasol per PCP
- if tolerates fosfomycin as expected, then stable for dc tomorrow
--- NOTE | 2024-12-23 14:20 | CM ---
Addendum entered by Glory Contreras 12/23/24 14:22:
Physical therapy recommend home health, caseworker met with patient and offered home health at discharge and patient declined.
Original Note:
hris manager reviewed patient's chart and met with patient and patient lives with her spouse in a 2 story home, patient is independent with adl's and ambulation, no dme, patient drives, home when stable, no needs.
PCP: Dr Domenica Fang
[facility] in [place]
Plan; Home no needs.
[2024-12-23 15:32] VITALS: BP 112/59
[2024-12-23 16:13] VITALS: BMI 24.5
[2024-12-23 16:41] LABS: Glucose - Point of Care 124 mg/dl (70-99)
[2024-12-23] MEDS: MONUROL 3 GM PO (17:00)
[2024-12-23] MEDS: CRESTOR 5 MG PO (17:00)
[2024-12-23 20:57] LABS: Glucose - Point of Care 173 mg/dl (70-99)
[2024-12-23 23:06] VITALS: BP 122/63
--- NOTE | 2024-12-23 23:55 | PTCARENOTE ---
AAO x 4. VSS. Patient denies pain. OOB with standby assist. No dizziness while ambulating. patient reports BM today but denies diarrhea. Patient states that her stool is now brown in color opposed to red/orange tinged. x 1 dose oral antibiotic
administered on prior shift. Patient denies GI upset. This RN will continue to monitor. Plan for discharge to home where patient is primary sock mender for her spouse with ESRD and L BKA. All patient needs met. Bed in lowest position. Call morgan and
personal belongings within reach.
[2024-12-24] MEDS: SYNTHROID 100 MCG PO (05:19)
[2024-12-24 06:00] VITALS: BMI 24.0
[2024-12-24 07:05] VITALS: BP 121/66
[2024-12-24 07:11] LABS: Glucose - Point of Care 121 mg/dl (70-99)
[2024-12-24] MEDS: NOVOLOG FLEXPEN-LOW RESISTANCE SC (08:27)
[2024-12-24] MEDS: PRADAXA 150 MG PO (09:29)
[2024-12-24] MEDS: FLORASTOR 250 MG PO (09:30)
[2024-12-24] MEDS: TOPROL XL 50 MG PO (09:30)
[2024-12-24] MEDS: ZOLOFT 25 MG PO (09:30)
--- NOTE | 2024-12-24 10:10 | W.PN.HOSP.TC ---
Addendum entered and electronically signed by Neo Clarke DO 12/24/24 10:16:
Patient confirmed that she is not allergic to sulfa but believes she had a side effect of GI upset. She wants to try Hiprex on discharge for UTI prevention.
Original Note:
Today's Communication/Plan
-
Discharge
Assessment / Plan
Assessment / Plan
Gen-AAOx3, NAD
HEENT-NC, anicteric, clear oral mm, right sided periorbital bruising
Neck-supple
CV-reg, no M, +S1/S2
Lungs-clear B/L
Abd-soft, NT, ND
Ext-no edema
Musculoskeletal-no cyanosis, clubbing
Skin-warm and dry
Neuro-grossly non-focal
Psych-calm, cooperative
Klebsiella Oxytoca ESBL UTI
- discharged last admission on Cefdinir prior to culture data availabilty after discussion with patient, no prior MDRO and UTI symptoms were improving
- PCP notified patient that ESBL growth - switched to Macrobid
- patient unable to tolerate Macrobid, severe diarrhea and abd discomfort
- presents back for weakness, likely due to volume depletion
-Completed course of antibiotics in the hospital. Received a dose of fosfomycin yesterday. Can discharge on Hiprex as per ID.
Antibiotic associated diarrhea from Macrobid
- C. Diff and noro negative
Recent COVID-19 infection
- improved
- no indication for ongoing isolation
Paroxysmal Atrial Fibrillation
- Stable. continue metoprolol and Pradaxa.
DM2 without hyperglycemia
- Stable. No longer on PO medications.
- Follow glucose and cover with SSI as needed
- A1C 6.8%
Hypothyroidism
- Stable. Continue T4 replacement.
Hyperlipidemia -rosuvastatin.
DVT Prophylaxis: Pradaxa
Full code
Dispo -medically stable for discharge. Outpatient follow-up.
32 minutes spent in discharge process.
Anticipated Discharge: Today
Subjective/Interval History
-
Date of Service: December 24, 2024
Patient seen and examined. No complaints.
Objective Data
-
Vital Signs:
Vital Signs
Temp Pulse Resp BP Pulse Ox
97.4 F 78 14 121/66 98
12/24/24 07:05 12/24/24 07:05 12/24/24 07:05 12/24/24 07:05 12/24/24 07:05
I&O
12/23/24 12/24/24 12/25/24
06:59 06:59 06:59
Intake Total 1320 / 1320 180 / 180
Balance 1320 / 1320 180 / 180
Review of Systems
-
History Source: Patient
All other systems: Reviewed and negative
--- NOTE | 2024-12-24 10:15 | W.DS.TRANS ---
DC Summary - Silver Wrapper
-
Discharge Instructions:
Sleep Apnea Risk Low
Discharge Diagnosis/Procedures UTI
Diet Regular
Activity As tolerated
Driving Restrictions As prior to admission
Bathing Restrictions None
Instructions:
Stand-Alone Forms:
Changes to Home Medications: No
Discharge Medications:
DC Medications w/original date entered in [facility]
levothyroxine 100 mcg tablet (Synthroid) 100 mcg PO MOTUWETHFRSA Thyroid 04/05/11
dabigatran etexilate 150 mg capsule (Pradaxa) 150 mg PO BID ##0 03/18/14
cetirizine 10 mg tablet 10 mg PO DAILY Allergies 04/07/22
fluticasone propionate 50 mcg/actuation nasal spray,suspension 2 spray intranasal DAILY PRN nasal congestion 04/07/22
metoprolol succinate 50 mg tablet,extended release 24 hr 50 mg PO BID Blood Pressure 04/07/22
rosuvastatin 5 mg tablet 5 mg PO QPM High Cholesterol 04/07/22
vitamin H40-[id number] B1 1 tab PO DAILY Supplement 07/21/22
Saccharomyces boulardii 250 mg capsule (Probiotic (S.boulardii)) 250 mg PO DAILY Supplement 07/09/24
sertraline 25 mg tablet 25 mg PO DAILY Mental Health/Anxiety 07/09/24
magnesium 250 mg tablet 250 mg PO DAILY Supplement 12/15/24
methenamine hippurate 1 gram tablet 1 g PO BID #60 tabs 12/24/24
Home Medication Changes
Pending Results: No
[2024-12-24 10:28] VITALS: BP 123/73
--- NOTE | 2024-12-24 10:42 | CM ---
Chart reviewed and patient has been cleared for discharge today, home no needs. Patient has denied the need for visiting nurses at discharge.
Plan; Home no needs.
== END 2024-12-24 13:05 | disposition home or self-care (01) | DRG 690 ==
LOC: 4 WEST ACU 08:20
PROVIDERS: Emergency Medicine; Internal Medicine; Physician Assistant; Physician Assistant Medical; ADMITTING PHYSICIAN Internal Medicine; ATTENDING PHYSICIAN Hospitalist; EMERGENCY PHYSICIAN Emergency Medicine; FAMILY PHYSICIAN Family Medicine; OTHER PHYSICIAN Student in an Organized Health Care Education/Training Program
DX: N39.0 Urinary tract infection, site not specified (principal); K52.1 Toxic gastroenteritis and colitis; Z16.24 Resistance to multiple antibiotics; Z16.12 Extended spectrum beta lactamase (ESBL) resistance; E03.9 Hypothyroidism, unspecified; E11.9 Type 2 diabetes mellitus without complications; I48.0 Paroxysmal atrial fibrillation; B96.1 Klebsiella pneumoniae [K. pneumoniae] as the cause of diseases classified elsewhere; R19.7 Diarrhea, unspecified; E86.0 Dehydration; R30.0 Dysuria; E55.9 Vitamin D deficiency, unspecified; G43.809 Other migraine, not intractable, without status migrainosus; J30.9 Allergic rhinitis, unspecified; N76.0 Acute vaginitis; E78.5 Hyperlipidemia, unspecified; T37.8X5A Adverse effect of other specified systemic anti-infectives and antiparasitics, initial encounter; Y92.9 Unspecified place or not applicable; W19.XXXA Unspecified fall, initial encounter; Y93.9 Activity, unspecified; Y92.002 Bathroom of unspecified non-institutional (private) residence as the place of occurrence of the external cause; Z96.653 Presence of artificial knee joint, bilateral; Z87.440 Personal history of urinary (tract) infections; Z90.49 Acquired absence of other specified parts of digestive tract; Z79.890 Hormone replacement therapy; Z86.16 Personal history of COVID-19; Z88.1 Allergy status to other antibiotic agents; Z88.2 Allergy status to sulfonamides; Z79.02 Long term (current) use of antithrombotics/antiplatelets; Z90.721 Acquired absence of ovaries, unilateral
CPT/HCPCS: 80048; 80053; 81003; 81015; 82962; 85025; 85027; 87086; 87324; 87449; 87798; 96361; 96374; 97162; 97166; 97535; 99284; J1335

== ENCOUNTER → 2025-01-03 11:08 | Outpatient (REF) | payer OTHER, SELFPAY | LOC: RAD 11:08 | PROVIDERS: ATTENDING PHYSICIAN Specialist; FAMILY PHYSICIAN Family Medicine | DX: R63.4 Abnormal weight loss (principal) | CPT/HCPCS: 74177; Q9967 ==

== ENCOUNTER → 2025-01-28 07:44 | Outpatient (REF) | payer OTHER, SELFPAY | LOC: HWRCS 07:44 | PROVIDERS: ATTENDING PHYSICIAN Family Medicine | DX: I51.7 Cardiomegaly (principal) | CPT/HCPCS: 93306 ==

== ENCOUNTER 2025-02-06 06:22 | Day surgery (SDC) | payer OTHER, SELFPAY ==
[2025-02-06 07:46] LABS: Glucose - Point of Care 141 mg/dl (70-99)
== END 2025-02-06 09:16 | disposition home or self-care (01) ==
LOC: GI 06:22
PROVIDERS: ATTENDING PHYSICIAN Specialist
DX: Z12.11 Encounter for screening for malignant neoplasm of colon (principal); D12.3 Benign neoplasm of transverse colon; Z80.0 Family history of malignant neoplasm of digestive organs; Z86.0101 Personal history of adenomatous and serrated colon polyps
CPT/HCPCS: 45385; 45380; 88305; 82962

== ENCOUNTER → 2025-05-10 09:57 | Outpatient (REF) | payer OTHER, SELFPAY | LOC: RAD 09:57 | PROVIDERS: ATTENDING PHYSICIAN Nurse Practitioner Adult Health | DX: M25.552 Pain in left hip (principal) | CPT/HCPCS: 73502 ==

== ENCOUNTER 2025-09-03 06:10 | Day surgery (SDC) | payer OTHER, SELFPAY ==
--- NOTE | 2025-08-29 09:18 | VNURNOTE ---
Addendum entered by Selam Maldonado RN 09/01/25 10:14:
Rec'ed update that [facility] already set up and confirmed acceptance for Same visit/start of care 09/03. Spoke with patient. She would like to proceed with [facility] VN/PT. [facility] referral cancelled. Intake updated. [facility]
aware.
Original Note:
Patient is scheduled for an elective L THR on 09/03 - she is a same day patient with Dr Turcios. Spoke with patient prior to surgery. Introduced role of [facility] Liaison. Patient reports that she lives with her spouse and family.
She has a wc, cane and rolling walker.
She had VN services after prior knees and was same day surgery.
Discussed [facility] joint protocol and post surgical plans.
Reviewed that she will have VN services initially and will then start outpatient PT.
Patient selects [facility] for her home care needs and will go to outpt PT at [facility]- Scheduled for 09/10. She will request outpt PT to move up her appt to the MON after surgery, if possible.
Patient is in agreement with plan and states that her spouse, daughter and family will be home with her. Advised to bring RW with her day of surgery. [facility] contact number provided. Referral placed in [facility].
Plan: [facility] per [facility] joint protocol 09/03 then outpt PT on 09/10
--- NOTE | 2025-09-01 10:18 | CM ---
Plan is for patient to go with [facility] visiting nurses, [facility] aware along with PT/OT.
Plan; Home with [facility] visiting nurses.
[2025-09-03] VITALS (15 sets, daily range): BP systolic 91–136; BP diastolic 33–84; PULSE 98; O2SAT 100; BMI 25.3
[2025-09-03] MEDS: TYLENOL 650 MG PO (07:30)
[2025-09-03 07:34] LABS: Glucose - Point of Care 146 mg/dl (70-99)
[2025-09-03] MEDS: NORMOSOL-R/PLASMALYTE-A 1000 IV (07:44)
[2025-09-03 09:16] LABS: Glucose - Point of Care 165 mg/dl (70-99)
[2025-09-03] MEDS: ANCEF 5 IV (12:17)
== END 2025-09-03 13:11 | disposition home health service (06) ==
LOC: SDS 06:10
PROVIDERS: ATTENDING PHYSICIAN Orthopaedic Surgery
DX: M16.12 Unilateral primary osteoarthritis, left hip (principal)
CPT/HCPCS: 27130; C1776; 73502; 82962; 86850; 86900; 86901; 97162